=== PATIENT | male | born 1970 | race Caucasian/White ===

== ENCOUNTER → 2019-06-05 | Outpatient (CLI) | payer MEDICAID ==
--- NOTE | 2019-06-05 12:58 | EST ---
EXERCISE STRESS DATE OF SERVICE: 06/05/2019 AGE: 42 SEX: Male HT: 69" WT: 220 pounds PROTOCOL: Norberto STAGE: III DURATION OF EXERCISE: 9 minutes HEART RATE REST: 94 BLOOD PRESSURE REST: 130/97 MAXIMUM HEART RATE ACHIEVED: 153 MAXIMUM BLOOD PRESSURE: 192/93 85% MPHR: 148 100% MPHR: 174 METS: 10.5 INDICATIONS: Chest pain. CLINICAL INFORMATION: Patient was exercised for a total period of 9 minutes. The peak heart rate of 153 was achieved. Maximum blood pressure of 192/93 mmHg was noted. Resting EKG shows normal sinus rhythm with normal TN interval and QRS duration and normal ST-T waves. No ST- segment depression suggestive of ischemia is noted. FINAL IMPRESSION: This exercise EKG is not suggestive of ischemia. Patient's exercise tolerance is normal. Patient did not complain of any anginal pain during the test. MMMUSHTAQ / LUISN: [id number] /
== END | disposition home or self-care (01) ==
LOC: RADNMMAIN 08:28
PROVIDERS: ATTEND Internal Medicine
DX: R07.9 Chest pain, unspecified (principal)
CPT/HCPCS: 93017

== ENCOUNTER → 2024-03-09 | Outpatient (CLI) | payer OTHER ==
[2024-03-09 11:43] LABS: African American GFR (CKD) >90 (>60 ml/min/1.73 sqM); Blood Urea Nitrogen 11 mg/dL (9-20); Non-African American GFR(CKD) >90 (>60 ml/min/1.73 sqM)
--- NOTE | 2024-03-09 16:43 | CT ---
EXAMINATION TYPE: CT angio abdomen pelvis CT DLP: 1964 mGycm, Automated exposure control for dose reduction was used. DATE OF EXAM: 03/09/2024 12:11 PM Measuring up to 1.9 cm abdomen and pelvis 08/31/2021 CLINICAL INDICATION:Male, 53 years old with history of I72.8 ANEURYSM OF OTHER SPECIFIED ARTERIES; F/ U ANEURYSM TECHNIQUE: Multiple thin slice sub-millimeter images were obtained through the abdomen and pelvis bef ore and after administration of contrast. Patient was given Isovue 370, 100 cc intravenously. FINDINGS: CTA Abdomen and pelvis: The abdominal aorta does not demonstrate aneurysmal dilatation. No evidence f or intramural hematoma or dissection. Minimal atherosclerotic plaquing is identified within the abdo stephanie aorta. The origins of the superior mesenteric artery, renal arteries, inferior mesenteric agustin ry, and celiac axis are patent. The iliac vessels are normal in morphology. Periphery calcified tea rdrop morphology splenic artery aneurysm redemonstrated measuring 3.4 cm (series 12, image 28). Overa ll stable when measured with similar technique. There is some eccentric mural thrombus with questiona ble internal enhancement. VISCERA: The liver, spleen, adrenal glands, kidneys, pancreas, and gallbladder are not optimally enha nced due the arterial phase utilized. LIVER: Unremarkable GALLBLADDER AND BILE DUCTS: Unremarkable. PANCREAS: Unremarkable. SPLEEN: Stable 1.4 cm enhancing lesion within the spleen most consistent with a hemangioma. ADRENAL GLANDS: Unremarkable. KIDNEYS AND URETERS: No evidence of hydronephrosis or renal calculus. The kidneys enhancement symmetr ically. Circumaortic left renal vein. PELVIS BLADDER: Unremarkable REPRODUCTIVE: Prostate is enlarged in size measuring 5.4 cm in transverse dimension. ABDOMEN & PELVIS STOMACH AND BOWEL: Moderate size hiatal hernia.No focal bowel wall thickening or surrounding inflamma tory changes. The appendix is within normal limits. No evidence of bowel obstruction. PERITONEUM: No evidence of pneumoperitoneum or free fluid. MUSCULOSKELETAL: No acute osseous abnormalities. Mild multilevel anterior osteophytosis. LYMPH NODES: No evidence for lymphadenopathy. SOFT TISSUE/ABDOMINAL WALL: Similar fat-containing right inguinal hernia. IMPRESSION 1. No evidence of abdominal aortic aneurysm, intramural hematoma or dissection. 2. Stable teardrop shaped splenic artery aneurysm measuring up to 3.4 cm. 3. Moderate size hiatal hernia redemonstrated. [facility], , 03/09/2024 4:41 PM
== END | disposition home or self-care (01) ==
LOC: RADCTMAIN 11:04
PROVIDERS: ATTEND Surgery
DX: I72.8 Aneurysm of other specified arteries (principal); K44.9 Diaphragmatic hernia without obstruction or gangrene
CPT/HCPCS: 82565; 84520; 36415; 74174; Q9967

== ENCOUNTER → 2024-04-09 | Outpatient (CLI) | payer OTHER ==
--- NOTE | 2024-04-09 12:21 | XR ---
EXAMINATION TYPE: XR elbow complete LT DATE OF EXAM: 04/09/2024 COMPARISON: NONE HISTORY: Palpable lump FINDINGS: Three views of the elbow demonstrate no pathologic joint effusion. The osseous structures are intact . There is no acute fracture or dislocation. Olecranon spur which is well-corticated and may have s uffered remote trauma. Soft tissue edema in the region may reflect the olecranon bursitis. IMPRESSION: 1. There is a moderate-sized olecranon spur from the bone. Well corticated , therefore, chr onic. Correlate with point tenderness. Soft tissue thickening could be associated with olecranon burs itis. [facility], , 04/09/2024 12:18 PM
== END | disposition home or self-care (01) ==
LOC: RADXRMAIN 11:58
PROVIDERS: ATTEND Physician Assistant
DX: M25.522 Pain in left elbow (principal)

== ENCOUNTER 2024-04-22 10:03 | Day surgery (SDC) | payer OTHER ==
[2024-04-17 15:17] VITALS: BMI 30.4
[~2024-04-22 10:03] MED LIST: ALPRAZolam 0.25 MG TAB PO PRN; ALPRAZolam 0.5 MG TAB PO PRN; ASPIRIN 325 MG TAB PO PRN; HEPARIN SODIUM,PORCINE (1 ML) 2,500 UNIT in SODIUM CHLORIDE 0.9% 250 ML IRRIGATION PRN; HEPARIN SODIUM,PORCINE 10,000 UNIT in SODIUM CHLORIDE 0.9% 1,000 ML IRRIGATION PRN; ZOLPIDEM 5 MG TAB PO PRN
[2024-04-22 10:32] VITALS: RESP 18; TEMP 97.6
[2024-04-22] MEDS: IV FLUID CONTINUATION 1,000 ML IV ONE (10:32)
[2024-04-22] MEDS: SODIUM CHLORIDE 0.9% 1,000 ML in EMPTY BAG 1 BAG IV ONE (10:32)
[2024-04-22 10:38] LABS: Glucose,Whole Blood 237 mg/dL (70-110)
[2024-04-22] MEDS: INSULIN ASPART (NovoLOG) 100 UNIT/ML VIAL SQ SCH (10:49)
[2024-04-22 10:55] LABS: Basophils # (A) 0.1 k/uL (0-0.2); Basophils % (A) 1 %; Eosinophils # (A) 0.4 k/uL (0-0.7); Eosinophils % (A) 5 %; HCT 47.9 % (39.0-53.0); HGB 16.5 gm/dL (13.0-17.5); Lymphocytes # (A) 2.4 k/uL (1.0-4.8); Lymphocytes % (A) 31 %; MCH 28.9 pg (25.0-35.0); MCHC 34.5 g/dL (31.0-37.0); Mean Platelet Volume 7.9; Monocytes # (A) 0.7 k/uL (0-1.0); Monocytes % (A) 8 %; Neutrophils # (A) 4.2 k/uL (1.3-7.7); Neutrophils % (A) 54 %; Platelet Count 207 k/uL (150-450); RDW 12.6 % (11.5-15.5); WBC 7.9 k/uL (3.8-10.6)
[2024-04-22 11:00] LABS: African American GFR (CKD) >90 (>60 ml/min/1.73 sqM); Anion Gap 9 mmol/L; Blood Urea Nitrogen 16 mg/dL (9-20); Calcium 9.6 mg/dL (8.4-10.2); Carbon Dioxide 27 mmol/L (22-30); Chloride 99 mmol/L (98-107); Glucose 250 mg/dL (74-99); Non-African American GFR(CKD) >90 (>60 ml/min/1.73 sqM); Sodium 135 mmol/L (137-145)
[2024-04-22 11:02] LABS: Potassium 5.2 mmol/L (3.5-5.1)
[2024-04-22] MEDS: HEPARIN SODIUM (1,000 UNIT/ML) 1,000 UNIT in SODIUM CHLORIDE 0.9% 1,000 ML IRRIGATION ONE (11:44)
[2024-04-22] MEDS: MIDAZOLAM 2 MG/2 ML VIAL IVP ONE ×2 (11:54→11:57)
[2024-04-22] MEDS: fentaNYL (PF) 50 MCG/ML 2 ML AMP IVP ONE ×2 (11:54→12:48)
[2024-04-22] MEDS: LIDOCAINE 1% INJ 10MG/ML (20 ML MDV) SQ ONE (11:58)
[2024-04-22] MEDS: IOPAMIDOL-250 100ML BTL INTRAARTER ONE (13:59)
--- NOTE | 2024-04-22 14:46 | P.OP ---
Date of Procedure: 04/22/24 Preoperative Diagnosis: 3.5 cm splenic artery aneurysm. Postoperative Diagnosis: Same. Procedure(s) Performed: 1: Ultrasound-guided cannulation right common femoral artery. 2: Abdominal aortogram. 3: Selective catheterization celiac artery and splenic artery. 4: Celiac angiogram/splenic artery angiogram. Implants: None. Anesthesia: local (1% Xylocaine with multiple doses of 50 mcg of fentanyl and 2 mg of Versed administered intravenously.) Surgeon: Rashad Vu Estimated Blood Loss (ml): 40 Urine output (ml): 0 Pathology: none sent Condition: stable Disposition: no change Indications for Procedure: Patient is a 53-year-old male who was found to have a 3.5 cm splenic artery aneurysm. It was unclear from CTA whether this aneurysm could be treated from an endovascular standpoint or would require splenectomy. To further delineate anatomy patient is offered angiogram possible endovascular repair. Description of Procedure: Patient was brought to the cardiac catheterization suite. Both groins were sterilely prepped draped in usual manner. Patient received 2 mg of Versed and 50 mcg of fentanyl intravenously for moderate conscious sedation purposes. Utilizing ultrasound the right common femoral artery was identified. 1% Xylocaine was utilized for local anesthesia tissue overlying the common femoral artery. Through this anesthetized area with the aid of ultrasound a micropuncture needle was utilized to cannulate the artery and once cannulated soft tipped guidewire was advanced into the artery. The needle was withdrawn and a micropuncture sheath and dilator were advanced over the guidewire. Dilator and guidewire were withdrawn and a 0.035 inch J-tip guidewire was advanced into the iliac artery. The needle was withdrawn and a 5 Palauan sheath was placed. Catheter and guidewire combination were advanced to the proximal abdominal aortic position. Aortogram was performed. Subsequently the guide catheter was advanced over the guidewire and utilized to cannulate the celiac axis. Guidewire was advanced under fluoroscopic control into the splenic artery. A 4 Palauan glide catheter was advanced over the guidewire and the guide catheter was placed appropriately within the origin of the splenic artery. Angiogram was performed. The splenic artery was extremely tortuous and attempt to advance multiple guidewire and catheter combinations were unsuccessful. However on angiography it was noted that this vessel fed the upper pole of the spleen and not the lower pole of the spleen where the aneurysm was. In spite of multiple attempts utilizing multiple guidewire and catheter combinations to cannulate the artery feeding the lower portion of the spleen this could not be accomplished. As such the procedure was abandoned. Guidewire catheter and sheath were withdrawn and the puncture arteriotomy was closed with Angio-Seal device. Patient tolerated procedure well and was taken the outpatient area in satisfactory and stable condition. Total fluoroscopy time: 51 minutes. Total moderate conscious sedation time: 75 minutes. Total contrast volume utilized 200 mL Isovue-370. Plan - Discharge Summary Discharge Rx Participant: Yes New Discharge Prescriptions: No Action Rosuvastatin [Crestor] 20 mg PO DAILY Insulin Degludec [Tresiba Flextouch U-100 Pen] 20 units SQ DAILY Albuterol Inhaler [Ventolin Hfa Inhaler] 2 puff INHALATION TID PRN PRN Reason: Wheezing Discharge Medication List Albuterol Inhaler [Ventolin Hfa Inhaler] 2 puff INHALATION TID PRN 04/17/24 [History] Rosuvastatin [Crestor] 20 mg PO DAILY 04/17/24 [History] Insulin Degludec [Tresiba Flextouch U-100 Pen] 20 units SQ DAILY 04/22/24 [History] Follow up Appointment(s)/Referral(s): Rashad Vu DO [Doctor of Osteopathic Medicine] - 1 Week (APPOINTMENT MADE ON April @ 10:45AM) Patient Instructions/Handouts: Peripheral Vascular Disease (DC), Moderate Sedation (DC) Activity/Diet/Wound Care/Special Instructions: *NO LIFTING, PUSHING, OR PULLING ANYTHING OVER 5 POUNDS FOR 5 DAYS *NO DRIVING FOR 3 DAYS *YOU CAN REMOVE YOUR DRESSING TOMORROW AND SHOWER AT THAT TIME - DO NOT SUBMERSE YOUR PUNCTURE SITE IN WATER FOR A FEW DAYS TO PREVENT INFECTION
--- NOTE | 2024-04-22 15:11 | IR ---
EXAMINATION TYPE: IR angio mesenteric DATE OF EXAM: 04/22/2024 FLUOROSCOPY splenic artery aneurysm, 51.2min fluoro, [id number] images are submitted. [facility], , 04/22/2024 3:09 PM
[2024-04-22 16:09] VITALS: BP 146/79; PULSE 93
== END 2024-04-22 16:54 | disposition home or self-care (01) ==
LOC: CATHCVL 10:03
PROVIDERS: ATTEND Surgery
DX: I72.8 Aneurysm of other specified arteries (principal); E11.9 Type 2 diabetes mellitus without complications; Z79.84 Long term (current) use of oral hypoglycemic drugs
CPT/HCPCS: 36246; 75625; 75726; 80048; 85025; C1894 ×3; C1760; C1769 ×6; C1887 ×2; J2250; J2003; J3010; J1644; Q9966; 36200

== ENCOUNTER → 2024-05-14 | Outpatient (CLI) | payer OTHER ==
--- NOTE | 2024-05-14 13:10 | XR ---
EXAMINATION TYPE: XR spine complete AP and Lat DATE OF EXAM: 05/14/2024 12:57 PM INDICATION: Patient age:Male; 53 years old; Reason for study: M54.50 LOW BACK PAIN, UNSPECIFIED; PHH. pain COMPARISON: CTA abdomen and pelvis 03/09/2024 TECHNIQUE: Frontal, lateral, and odontoid views of the cervical spine were obtained. Frontal, lateral , swimmer's views of the thoracic spine were obtained. Frontal, lateral, and coned down lateral L5-S1 views of the lumbar spine were obtained. FINDINGS: No acute fracture of the cervical spine. Vertebral body heights are maintained. There is straightenin g of the normal cervical lordosis which may be due to patient position versus muscle spasm. Prominent anterior osteophytes at C5-C6 and C6-C7. No significant disc space narrowing. The odontoid appears i ntact. Soft tissues are within normal limits. No acute fracture of the thoracic spine. Vertebral body heights are maintained. Normal alignment is d emonstrated. Multilevel anterior osteophytosis of the mid to lower thoracic spine with multilevel dis c space narrowing with endplate sclerosis. No acute fracture of the lumbar spine. Vertebral body heights are maintained. Normal alignment is dem onstrated. Mild multilevel degenerative disc disease with disc space narrowing, endplate sclerosis, a nd anterior osteophytosis. IMPRESSION: 1. No acute process. 2. Mild multilevel degenerative disc disease of the thoracolumbar spine. [facility], , 05/14/2024 1:08 PM
== END | disposition home or self-care (01) ==
LOC: RADXRMAIN 12:07
PROVIDERS: ATTEND Internal Medicine Geriatric Medicine
DX: M51.35 Other intervertebral disc degeneration, thoracolumbar region (principal)
CPT/HCPCS: 72082